=== PATIENT | male | born 2000 | race Two or more races ===

== ENCOUNTER 2025-03-21 17:29 | Emergency (ER) | payer MEDICAID ==
[~2025-03-21] VITALS: Ht 152.4 cm; Wt 65.9 kg
[2025-03-21 17:32] VITALS: BP 114/66; PULSE 65; O2SAT 97
--- NOTE | 2025-03-21 18:28 | Physician Documentation ---
History of Present Illness ~ Chief Complaint: Cough Stated Complaint: COUGHING Time Seen by MD: 18:26 HPI Patient presents to the emergency room for evaluation of xiphoid process pain. He states he was coughing that he has had pain ever since. He says it is tender to palpation. He has had nothing for the pain Medication Reconciliation Allergies: Coded Allergies: No Known Allergies (Unverified , 03/21/25) Review of Systems ROS All review of systems negative except as per HPI Physical Exam Vital Signs: Temperature: 98.1, Source: Temporal, Heart Rate: 65, Respiratory Rate: 15, BP: 114/66, Pulse Oximetry: 97, Weight: 65.900 Physical Exam General: Patient is awake, alert, oriented x4 in no acute distress and well appearing.~ Head: Normocephalic and atraumatic. Eyes: Conjunctival normal. EOMI. PERRL. ENT: Mucous membranes moist. Neck: Supple, trachea is midline. Chest: Clear to auscultation bilaterally without rales, rhonchi, or wheezes. There is no accessory muscle use or retractions. Tenderness to palpation to xiphoid process Cardiac: RRR without murmurs, gallops, or rubs. Progress Results/Orders Results/Orders Orders - VASILE PEREZ MD Chest,Single View (03/21/25 18:29) Completed Orders - VASILE PEREZ MD Chest,Single View (03/21/25 18:29) Vital Signs 03/21/25 03/21/25 17:32 18:49 Temp 98.1 Pulse 65 Resp 15 14 B/P (MAP) 114/66 Pulse Ox 97 EKG/XRAY/CT/US/VASC/MRI Chest X-Ray : Additional Comments One view chest x-ray interpreted by myself is negative for fractures dislocations or foreign bodies. Cardiac silhouette is normal and there was no effusions or infiltrates Medical Decision Making Findings Patient presented to the emergency room with pain to his xiphoid process after coughing. Differentials include but are not limited to fractures, dislocations, pneumothorax, ACS, reflux. Symptoms consistent with musculoskeletal pain I do not feel labs or CT scan is necessary. Conservative management discussed. Departure Disposition: 01 HOME / SELF CARE / HOMELESS Impression: Primary Impression: Rib pain Condition: Stable Discharge Instructions: Rib Contusion Additional Instructions: You may take [id number] ibuprofen and Tylenol for pain. I am giving you instructions on rib pain because we do not have instructions on xiphoid process pain Referrals: NO PRIMARY CARE PROVIDER (PCP) Education Educated: Patient Educated regarding: diagnosis, treatment, need for follow up Signature Scribe Signature: No scribe Attestation: The note accurately reflects work and decisions made by me.Vasile Perez MD 03/21/25 18:55 VASILE PEREZ MD Mar 21, 2025 18:28
[2025-03-21 18:49] VITALS: RESP 14
[2025-03-21 18:59] VITALS: TEMP 98.1
--- NOTE | 2025-03-21 19:23 | RADIOLOGY REPORT ---
EXAM: DI CHEST,SINGLE VIEW Indication: cp Technique: Single frontal view of the chest was obtained Comparison: None FINDINGS: Lines and Tubes: None Lungs: No focal consolidation. Pleura: No effusion. No pneumothorax. Cardiomediastinal contours: Unremarkable Bones: No acute osseous abnormality. IMPRESSION: No acute cardiopulmonary disease.
== END 2025-03-21 19:02 | disposition home or self-care (01) ==
LOC: ER 17:31
DX: R07.81 Pleurodynia (principal); R05.9 Cough, unspecified
CPT/HCPCS: 71045; 99283